=== PATIENT | male | born 1995 | race Caucasian/White ===

== ENCOUNTER 2016-04-10 17:50 | Emergency (ER) | payer BC ==
[2016-04-10] MEDS ORDERED: fentaNYL* 50 MCG/ML 2 ML VIAL (100 MCG VIAL) IV SLOW PU ONE ×2 (18:07→18:42)
--- NOTE | 2016-04-10 19:34 | RAD ---
Indication: Left shoulder pain, dislocation. 2 views of left shoulder demonstrates anterior inferior dislocation of the humerus. IMPRESSION: Anterior inferior dislocation left humerus.
--- NOTE | 2016-04-10 19:36 | RAD ---
Indication: Traumatic left shoulder dislocation. 2 views of the left shoulder demonstrates reduction of previously identified anterior inferior dislocation of the humeral head. IMPRESSION: Reduction of previously present anterior inferior dislocation of the left humeral head.
[2016-04-10 19:41] VITALS: BP 152/82
--- NOTE | 2016-04-15 09:56 | ED ---
Upper Extremity Pain - HPI Summary HPI Summary: Patient presents to ED with L shoulder pain/dislocation 1 hour ago after wrestling with friends. He is extremely diaphoretic and states 10/10 pain. Pain is constant, located to the anterior L shoulder, attempted movement makes the pain worse and rest improves the symptoms. It does not radiate. Patient denies numbness or tingling in the fingers. Denies temperature or color changes. Denies other injuries. Has not taken anything for the pain yet. He has never injured or dislocated this shoulder before. - History of Current Complaint Chief Complaint: EDExtremityUpper Stated Complaint: LT SHOULDER INJURY Time Seen by Provider: 04/10/16 18:19 Hx Obtained From: Patient Mechanism Of Injury: Unknown Onset/Duration: Started Hours Ago Timing: Constant Severity Initially: Moderate Severity Currently: Moderate Pain Location: Shoulder - left Character: Aching Aggravating Factor(s): Movement Alleviating Factor(s): Rest Associated Signs & Symptoms: Positive: Diaphoresis - Risk Factors Non-Orthopedic Risk Factor: Negative DVT Risk Factors: Negative Septic Arthritis Risk Factor: Negative Compartment Syndrome Risk Factors: Pain - Allergies/Home Medications Allergies/Adverse Reactions: Allergies Allergy/AdvReac Type Severity Reaction Status Date / Time No Known Allergies Allergy Verified 04/10/16 17:55 PMH/Surg Hx/FS Hx/Imm Hx Previously Healthy: Yes Infectious Disease History: No Infectious Disease History: Denies: Traveled Outside the [place] in Last 30 Days - Social History Occupation: Student Lives: Alone Alcohol Use: Weekly Hx Substance Use: No Substance Use Type: Reports: None Hx Tobacco Use: No Smoking Status (MU): Never Smoked Tobacco Review of Systems Positive: Skin Diaphoresis Eyes: Negative Cardiovascular: Negative Respiratory: Negative Gastrointestinal: Negative Positive: Arthralgia, Decreased ROM Skin: Negative Neurological: Negative Psychological: Normal All Other Systems Reviewed And Are Negative: Yes Physical Exam Triage Information Reviewed: Yes Vital Signs On Initial Exam: Initial Vitals Temp Pulse Resp BP Pulse Ox 97.8 F 80 20 179/100 98 04/10/16 17:55 04/10/16 17:55 04/10/16 17:55 04/10/16 17:55 04/10/16 17:55 Vital Signs Reviewed: Yes Appearance: Positive: Well-Appearing, Pain Distress Skin: Positive: Warm, Diaphoretic Head/Face: Positive: Normal Head/Face Inspection Eyes: Positive: Normal, EOMI ENT: Positive: Hearing grossly normal Neck: Positive: Nontender, No Lymphadenopathy Respiratory/Lung Sounds: Positive: Clear to Auscultation, Breath Sounds Present Cardiovascular: Positive: Normal Musculoskeletal: Positive: Limited @, Abnormal @ - left shoulder. bony prominence noted over superior shoulder. humeral head felt anteriorly., Pain @ Neurological: Positive: Normal, Sensory/Motor Intact, Speech Normal Psychiatric: Positive: Normal AVPU Assessment: Alert Diagnostics - Vital Signs Vital Signs Temp Pulse Resp BP Pulse Ox 04/10/16 19:39 70 16 152/82 04/10/16 18:47 16 04/10/16 18:18 16 04/10/16 17:55 97.8 F 80 20 179/100 98 - Laboratory Lab Statement: Any lab studies that have been ordered have been reviewed, and results considered in the medical decision making process. - Radiology No standard instances Xray Interpretation: Positive (See Comments) - anterior Left shoulder dislocation with no fractures noted; second xray s/p reduction shows humeral head joint reduced Radiology Interpretation Completed By: Radiologist Course/Dx - Course Course Of Treatment: Patient given pain medication fentanyl. Xray showed anterior dislocation. Provider with help of MD reduced shoulder using exorotation of shoulder and abduction of elbow. xray s/p reduction showed humeral head reduced with no fractures. shoulder immobilizer given. patient to follow up with sports medicine MD for PT and further evaluation. Patient agrees to plan. - Diagnoses Differential Diagnosis/HQI/PQRI: Positive: Contusion, Fracture (Closed), Strain , Sprain, Other - dislocation Provider Diagnoses: Anterior dislocation of left shoulder Discharge - Discharge Plan Condition: Stable Disposition: HOME Patient Education Materials: Shoulder Dislocation (ED) Referrals: Emiliano Murray [Medical Doctor] - Derick Gillette MD [Medical Doctor] - Additional Instructions: Immobilize the shoulder for 3 weeks. Follow up with an ortho physician.
== END 2016-04-10 19:39 | disposition home or self-care (01) ==
LOC: ED 17:50
DX: S43.005A Unspecified dislocation of left shoulder joint, initial encounter (principal); X50.9XXA Other and unspecified overexertion or strenuous movements or postures, initial encounter; Y93.72 Activity, wrestling; Y92.9 Unspecified place or not applicable; Y99.9 Unspecified external cause status; R61 Generalized hyperhidrosis
CPT/HCPCS: 96374; 99282; J3010